=== PATIENT | female | born 1945 | race Asian ===

== ENCOUNTER 2019-05-15 19:29 | Inpatient (IN) | payer OTHER, MEDICAID ==
[~2019-05-15] VITALS: Ht 160 cm; Wt 54.4 kg
[2019-05-15 19:54] VITALS: BP_SYST 155
--- NOTE | 2019-05-15 20:00 | NUR ---
Patient to ER bed 1 to gown for evaluation. Side rails up.
--- NOTE | 2019-05-15 20:10 | NUR ---
ER at bedside examining patient.
--- NOTE | 2019-05-15 20:15 | NUR ---
Pt cam eto the ED for elevated WBC per facility. Reports that pt had WBC of 19.6. 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 Reports g-tube in place due to difficulty swallowing. Pts reports that usually when hemoglobin is low when WBC is elevated. Pt is non-verbal as her baseline. reports that she has been constipated and is only able to defecate a little at a time. No other complaints/injuries noted. Will cont. to monitor.
[2019-05-15 20:53] LABS: BASOPHILS % (AUTO) 0.3 % (0.0-2.0); EOSINOPHILS # (AUTO) 0.3 K/uL (0.0-0.4); EOSINOPHILS % (AUTO) 2.1 % (0.0-4.0); HEMATOCRIT 25.4 % (36-48); HEMOGLOBIN 8.7 g/dL (12.0-16.0); LYMPHOCYTES # (AUTO) 1.7 K/uL (1.0-5.5); LYMPHOCYTES % (AUTO) 14.4 % (20.5-51.5); MEAN CORPUSCULAR HEMOGLOBIN 37 pg (27-31); MEAN CORPUSCULAR HGB CONC 34 % (32-36); MEAN CORPUSCULAR VOLUME 108 fL (79.0-98.0); MONOCYTES # (AUTO) 0.9 K/uL (0.0-1.0); MONOCYTES % (AUTO) 7.8 % (1.7-9.3); NEUTROPHILS # (AUTO) 8.9 K/uL (1.8-7.7); NEUTROPHILS % (AUTO) 75.4 % (40.0-70.0); PLATELET COUNT (AUTO) 412 K/uL (130-430); RED BLOOD CELL COUNT(AUTO) 2.36 MIL/uL (4.2-6.2); RED CELL DISTRIBUTION WIDTH 13.9 % (9.0-15.0); WHITE BLOOD COUNT (AUTO) 11.8 K/uL (4.8-10.8)
[2019-05-15 21:24] LABS: ANION GAP 6 (5-15); CALCIUM 8.9 mg/dL (8.4-11.0); CHLORIDE 98 mmol/L (98-107); CREATININE 0.66 mg/dL (0.55-1.30); GLUCOSE 96 mg/dL (70-99); POTASSIUM 4.2 mmol/L (3.5-5.1); SODIUM SERUM 136 mmol/L (136-145); UREA NITROGEN, BLOOD 33 mg/dL (8-21)
[2019-05-15 21:28] LABS: ALANINE AMINOTRANSFERASE 6 U/L (12-78); ALBUMIN 2.9 g/dL (3.4-4.8); ASPARTATE AMINOTRANSFERASE 12 U/L (10-37); TOTAL BILIRUBIN 0.2 mg/dL (0.0-1.0)
--- NOTE | 2019-05-15 21:35 | NUR ---
Dr. Pete at bedside for rectal exam with myself as rivet hole machine operator. Hemooccult sent to lab.
--- NOTE | 2019-05-15 21:49 | NUR ---
RT at bedside for suctioning
[2019-05-15] MEDS ORDERED: cefTRIAXone 1 GM IVPB PREMIX 50 ML IV ONE (22:00)
[2019-05-15] MEDS ORDERED: VANCOMYCIN HCL 1,000 MG in NS 250 ML IV ONE (22:00)
[2019-05-15] MEDS ORDERED: NACL 0.9% 1,000 ML IV ONE (22:00)
[2019-05-15] MEDS ORDERED: VANCOMYCIN HCL 1000 MG/VIAL IV ONE (22:11)
--- NOTE | 2019-05-15 22:49 | NUR ---
# 16 FR Potts catheter with use of sterile technique. Immediate return of 100 cc yellow, cloudy urine noted. Bedside drainage bag placed below level of bladder. Urine sample collected and sent to lab. Pt tolerated procedure well. Patient arrived with potts in place, changed due to standard of practice prior to admission. Patient unable to toilet self.
[2019-05-15 23:46] LABS: BILIRUBIN,URINE NEGATIVE (NEGATIVE); BLOOD, URINE 1+ (NEGATIVE); CLARITY/URINE SL CLOUDY (CLEAR); COLOR,URINE YELLOW (YELLOW); GLUCOSE,URINE NEGATIVE (NEGATIVE); KETONES,URINE NEGATIVE (NEGATIVE); LEUKOCYTE ESTERASE ,URINE 3+ (NEGATIVE); NITRITE, URINE POSITIVE (NEGATIVE); PH,URINE 7.5 (5.0-8.0); PROTEIN URINE NEGATIVE (NEGATIVE); UROBILINOGEN,URINE 0.2 (0.2-1.0)
[2019-05-15 23:51] LABS: WBC,URINE >100 /HPF (0-3)
[2019-05-15 23:52] LABS: BACTERIA,URINE MANY /HPF (None Seen); URIC ACID CRYSTALS,URINE 0-10 /HPF (None Seen)
[2019-05-16] VITALS (8 sets, daily range): BP systolic 112–162
--- NOTE | 2019-05-16 00:01 | NUR ---
Pts willian went home [phone]
--- NOTE | 2019-05-16 00:22 | NUR ---
Patient will be admitted to care of Dr. Owens. Admitted to Tele unit. Will go to room 135. Belongings list completed. Summary report printed. Report will be given at bedside.
--- NOTE | 2019-05-16 00:30 | NUR ---
Medication reconciliation completed with information provided by facility paperwork. Any prior medication reconciliation on file was reviewed and corrected.
[2019-05-16] MEDS ORDERED: FLEETMO RC (00:39)
[2019-05-16] MEDS ORDERED: CARB1TAB10 GT (00:39)
[2019-05-16] MEDS ORDERED: ACET-2165 GT (00:39)
[2019-05-16] MEDS ORDERED: ALBU2.5V7 INH (00:39)
[2019-05-16] MEDS ORDERED: FERR220S6 GT (00:39)
[2019-05-16] MEDS ORDERED: ACET-73 GT (00:39)
[2019-05-16] MEDS ORDERED: FAMO40TA7 GT (00:39)
[2019-05-16] MEDS ORDERED: ACET325T53 GT (00:39)
[2019-05-16] MEDS ORDERED: MOM GT (00:39)
[2019-05-16] MEDS ORDERED: OSCD500 GT (00:39)
[2019-05-16] MEDS ORDERED: BISA-79 RETROBU093 (00:39)
[2019-05-16] MEDS ORDERED: METO25TA6 GT (00:39)
[2019-05-16] MEDS ORDERED: VITD2000 GT (00:39)
[2019-05-16] MEDS ORDERED: DOCU-144 GT (00:39)
[2019-05-16] MEDS ORDERED: LISI10TA5 GT (00:39)
--- NOTE | 2019-05-16 00:39 | NUR ---
called [facility] for bed, spoke to CN. waiting for bed.
--- NOTE | 2019-05-16 01:02 | NUR ---
Transfer to Tele via ACLS protocol. Licensed nurse present. IV present no signs or symptoms of infiltration.
--- NOTE | 2019-05-16 01:02 | NUR ---
ADMISSION: The patient, YOLANDE GABRIEL, 73 y/o, F admitted by DULCE MARIA GUARDADO MD; with diagnosis of UTI/SEPSIS. Primary RNAayush and Admit RNSerjio at bedside. RT at bedside for vent set up. Pt on Low airl loss mattress.
--- NOTE | 2019-05-16 01:53 | NUR ---
VENT TO TRACH suction small amount of thick white sputum up right position patient awake minimal ventilator alarming procedure tolerated .
--- NOTE | 2019-05-16 04:12 | NUR ---
CONSULTATION PAGED/CALLED Reason for Consultation: VENT MANAGEMENT Person Who was Notified: LEANN Consulting Physician: DR. RIVERA Hotel Services Sales Representative Specialty: Ordering Physician: DR. ESCALONA
--- NOTE | 2019-05-16 04:16 | NUR ---
CONSULTATION PAGED/CALLED Reason for Consultation: SEPSIS/UTI Person Who was Notified: LEANN Consulting Physician: JORJE Conference Services Director Specialty: Ordering Physician: DR. ESCALONA
--- NOTE | 2019-05-16 06:02 | NUR ---
PHOTO PICTURE TAKEN OF BUTTOCKS REDNESS IAD & put in MD medical folder .
--- NOTE | 2019-05-16 08:00 | NUR ---
OPENING NOTES, RECEIVED PT IN BED, PT IS AA01, NON-VERBAL, PT ON TRACH TO VENT, SETTING ARE TV 400, AC 12, PEEP 5, FIO2 30%. PT ABLE TO NOD HEAD FOR YES AND SHAKE FOR NO. TUBE FEEDING ON GOING, NO RESIDUAL NOTED, IF FLUIDS RUNNING ON R. HAND IV ACCESS WITH NO S/S OF INFILTRATION, NO SWELLING. SAFETY PRECAUTION IN PLACE. CALL LIGHT IN REACH. WILL CONTINUE NO MONITOR.
--- NOTE | 2019-05-16 09:05 | NUR ---
Nutrition Update Corona Scale 15 noted. Pt admitted for UTI, sepsis. Diet: Jevity 1.5 at 65 ml/hr, Free Water Flush: 50 via GT BMI: 25.2 kg/m2 RD to follow per nutrition care standards.
[2019-05-16] MEDS ORDERED: ALBUTEROL SULFATE 0.083% 2.5 MG/3 ML VIAL.NEB INH PRN (10:00)
[2019-05-16] MEDS ORDERED: IPRATROPIUM BROM 0.5 MG/2.5 ML VIAL.NEB (ATROVENT) INH PRN (10:00)
--- NOTE | 2019-05-16 10:00 | NUR ---
TURNED AND REPOSITIONED PATIENT WITH RAIL SIGNAL MECHANIC DASIA. SUCTIONED VIA TRACH. WILL CONT TO MONITOR.
[2019-05-16] MEDS: MINERAL OIL 30 ML UDC GT SCH ×2 (10:58→18:12)
[2019-05-16] MEDS: IPRATROPIUM BROM 0.5 MG/2.5 ML VIAL.NEB (ATROVENT) INH SCH ×5 (11:00→23:00)
[2019-05-16] MEDS: ALBUTEROL SULFATE 0.083% 2.5 MG/3 ML VIAL.NEB INH SCH ×5 (11:00→23:00)
--- NOTE | 2019-05-16 12:00 | NUR ---
FLUSHED G-TUBE WITH 50 CC WATER ORDERED.
--- NOTE | 2019-05-16 14:20 | NUR ---
TURNED AND REPOSITIONED PT, FAMILY AT BEDSIDE, PT HAS NO S/S OF SOB, NO DISTRESS.
--- NOTE | 2019-05-16 14:28 | NUR ---
DR RECINOS HERE AND SEEN PT. SPOKE WITH PT'S AT BEDSIDE.
[2019-05-16] MEDS: metroNIDAZOLE 500 mg/NS 100 ML IV SCH (15:20)
--- NOTE | 2019-05-16 18:30 | NUR ---
CLOSING NOTES, PT REMAINED STABLE, NO FEVER, NO CHANGED IN VENT SETTING. PT HAS PORTEX #7. GIVEN ANTIBIOTICS ORDERED. PT ALSO RECEIVED SCHEDULED MINERAL OIL FOR CONSTIPATION. WILL ENDORSE TO NIGHT NURSE.
--- NOTE | 2019-05-16 19:46 | NUR ---
Opening notes Received report. Patient resting in bed, at bedside. No signs of distress noted. Patient tolerating current vent settings O2 sat 99%. IV patent and intact, no signs of infiltration noted. No needs at this time. Call light with the patient. Safety precautions in place.
[2019-05-16] MEDS: FAMOTIDINE 20 MG TABLET GT SCH (20:53)
[2019-05-16] MEDS: METOPROLOL TARTRATE 25 MG TABLET GT SCH (20:53)
--- NOTE | 2019-05-16 21:05 | NUR ---
Medications given via g-tube. 30 ml residual noted. Educated the action and side effects of medications. Patient nodded head. Oral care provided at this time. Patient tolerated well. No other needs at this time. Patient made comfortable. Call light with the patient. Safety precautions in place.
[2019-05-16] MEDS ORDERED: VANCOMYCIN HCL 1,000 MG in NS 250 ML IV SCH (22:00)
[2019-05-16] MEDS: cefTRIAXone 1 GM in D5W 50 ML IV SCH (23:27)
--- NOTE | 2019-05-16 23:50 | NUR ---
Resting Patient resting. Hygiene care provided. Patient repositioned. Patient tolerated well. Patient refuse hygiene care. Educated the importance. Patient nodded no. No other needs. Call light with the patient. Safety precautions in place. Addendum: 05/17/19 at 0413 by Arely Azevedo RN CORRECTION: PATIENT REFUSED ORAL CARE.
[2019-05-17 00:03] VITALS: BP_SYST 132
--- NOTE | 2019-05-17 02:00 | NUR ---
Resting Patient resting in bed, turned on TV per patient request. New bottle of feeding hung. Patient still refusing oral care. No other needs. Call light with the patient. Safety precautions in place.
[2019-05-17] MEDS: IPRATROPIUM BROM 0.5 MG/2.5 ML VIAL.NEB (ATROVENT) INH SCH ×6 (03:00→23:18)
[2019-05-17] MEDS: ALBUTEROL SULFATE 0.083% 2.5 MG/3 ML VIAL.NEB INH SCH ×6 (03:00→23:18)
[2019-05-17] MEDS: metroNIDAZOLE 500 mg/NS 100 ML IV SCH ×2 (03:27→15:05)
[2019-05-17] MEDS: MINERAL OIL 30 ML UDC GT SCH ×3 (03:27→18:42)
--- NOTE | 2019-05-17 04:13 | NUR ---
Sleeping No signs of distress noted. Breathing even and unlabored. Tolerating current vent settings, O2 sat 99%. Call light with the patient. Safety precautions in place.
--- NOTE | 2019-05-17 05:36 | NUR ---
BM Patient had large stool. Hygiene care provided. Patient tolerated well. Patient turned and repositioned. No other needs. Call light with the patient. Safety precautions in place.
--- NOTE | 2019-05-17 06:39 | NUR ---
Closing notes Patient sleeping. No signs of distress noted. Breathing even and unlabored, tolerating current vent settings, O2 Sat 99%. IV patent and intact, no signs of infiltration noted. Feeding infusing at ordered rate. Fitch catheter in place, draining yellow urine. All need met throughout the shift. Call light with the patient. Safety precautions in place. Will endorse care to day shift RN.
--- NOTE | 2019-05-17 07:15 | NUR ---
INITIAL NOTE BEDSIDE SBAR REPORT RECEIVED BY VETERINARY X RAY OPERATOR RN. PT RECEIVING BREATHING TREATMENT, TOLERATING WELL. PT IS NONVERBAL. CALL LIGHT WITHIN REACH, BED IN LOW AND LOCKED POSITION WITH BED ALARM ON.
[2019-05-17 07:31] LABS: EOSINOPHILS # (AUTO) 0.1 K/uL (0.0-0.4); MONOCYTES # (AUTO) 0.6 K/uL (0.0-1.0); NEUTROPHILS # (AUTO) 5.4 K/uL (1.8-7.7); RED CELL DISTRIBUTION WIDTH 14.1 % (9.0-15.0)
[2019-05-17 07:39] LABS: ALANINE AMINOTRANSFERASE 23 U/L (12-78); ALBUMIN 2.6 g/dL (3.4-4.8); ANION GAP 3 (5-15); ASPARTATE AMINOTRANSFERASE 9 U/L (10-37); BASOPHILS % (AUTO) 0.2 % (0.0-2.0); CALCIUM 8.3 mg/dL (8.4-11.0); CHLORIDE 104 mmol/L (98-107); CREATININE 0.54 mg/dL (0.55-1.30); EOSINOPHILS % (AUTO) 1.1 % (0.0-4.0); GLUCOSE 147 mg/dL (70-99); LYMPHOCYTES # (AUTO) 1.8 K/uL (1.0-5.5); LYMPHOCYTES % (AUTO) 22.9 % (20.5-51.5); MEAN CORPUSCULAR HEMOGLOBIN 38 pg (27-31); MEAN CORPUSCULAR HGB CONC 35 % (32-36); MEAN CORPUSCULAR VOLUME 110 fL (79.0-98.0); MONOCYTES % (AUTO) 7.3 % (1.7-9.3); NEUTROPHILS % (AUTO) 68.5 % (40.0-70.0); PLATELET COUNT (AUTO) 369 K/uL (130-430); POTASSIUM 3.9 mmol/L (3.5-5.1); RED BLOOD CELL COUNT(AUTO) 2.09 MIL/uL (4.2-6.2); SODIUM SERUM 136 mmol/L (136-145); TOTAL BILIRUBIN 0.2 mg/dL (0.0-1.0); UREA NITROGEN, BLOOD 23 mg/dL (8-21); WHITE BLOOD COUNT (AUTO) 7.9 K/uL (4.8-10.8)
[2019-05-17 07:44] LABS: HEMATOCRIT 23.1 % (36-48)
[2019-05-17 08:00] VITALS: BP_SYST 160
[2019-05-17] MEDS: FAMOTIDINE 20 MG TABLET GT SCH ×2 (08:41→21:26)
[2019-05-17] MEDS: LISINOPRIL 10 MG TABLET (PRINIVIL) GT SCH (08:42)
[2019-05-17] MEDS: METOPROLOL TARTRATE 25 MG TABLET GT SCH ×2 (08:42→21:26)
--- NOTE | 2019-05-17 09:15 | NUR ---
RN ROUNDS PT AWAKE, NON VERBAL. NO ACUTE DISTRESS NOTED. AT BEDSIDE.
--- NOTE | 2019-05-17 09:45 | NUR ---
DR. DEBBY ANDERSON AT BEDSIDE EXAMINING PATIENT.
--- NOTE | 2019-05-17 11:20 | NUR ---
RN ROUNDS ORAL CARE DONE, PT TOLERATED WELL. PT INCONTINENT OF BOWEL, PT CHANGED.
[2019-05-17 12:26] VITALS: BP_SYST 155
--- NOTE | 2019-05-17 13:20 | NUR ---
RN ROUNDS PT RESTING, NO ACUTE DISTRESS NOTED, BREATHING EVEN AND UNLABORED.
--- NOTE | 2019-05-17 13:33 | NUR ---
Dietitian Recommendations * Recommend Jevity 1.5 at 55 ml/hr, Free Water Flush: 50 ml Q6h via GT Provides: 1980 kcal/day, 84 gm protein/day, and 1203 ml free water/day Meets: 103% of lower end of estimated caloric needs and 103% of lower end of estimated protein needs ANNE, RD Please refer to Nutrition Assessment for details. Addendum: 05/17/19 at [address] Amended: Links added. Addendum: 05/17/19 at [address] RD notified pt's primary RN of above recommendations/TF order. RN stated she would adjust TF pump.
--- NOTE | 2019-05-17 15:20 | NUR ---
RN ROUNDS PATIENT RESTING, NO ACUTE DISTRESS NOTED, BREATHING EVEN AND UNLABORED. FAMILY AT BEDSIDE.
[2019-05-17 16:30] VITALS: BP_SYST 148
--- NOTE | 2019-05-17 17:20 | NUR ---
RN ROUNDS PT RESTING IN BED, NO ACUTE DISTRESS NOTED, BREATHING EVEN AND UNLABORED. FAMILY AT BEDSIDE.
--- NOTE | 2019-05-17 18:06 | NUR ---
RN ROUNDS PATIENT PERSPIRING. TEMP STABLE 98.3. OFFERED ICE PACK AND REMOVED BLANKET. WILL CONTINUE TO MONITOR. PT DENIES ANY PAIN OR DISCOMFORT AT THIS TIME.
--- NOTE | 2019-05-17 19:20 | NUR ---
CHANGE OF SHIFT; pt. awake, alert, non verbal with tracheostomy on a vent. at bedside. on high rocha's position. 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 will assess later. in no distress. bed in low position.
--- NOTE | 2019-05-17 19:42 | NUR ---
CLOSING NOTE BEDSIDE SBAR REPORT GIVEN TO CAR CUSTOMIZER RN. PATIENT SLEEPING, BREATHING EVEN AND UNLABORED, NO ACUTE DISTRESS NOTED. IVF INFUSING WELL. FEEDING TUBE INFUSING WELL. CALL LIGHT WITHIN REACH, BED IN LOW AND LOCKED POSITION WITH BED ALARM ON. ISOLATION PRECAUTIONS IN PLACE.
[2019-05-17 20:30] VITALS: BP_SYST 151
--- NOTE | 2019-05-17 20:30 | NUR ---
NOTES: pt. awake, alert,nods head or shakes head when asked questioned, understand Tagalog and Maltese, with trach #7 on the vent , settings AC rate 12 TV 400 PEEP 5 and FIO2 @ 32%. suctioned orally and via trach with thick mucus secretions. O2 sat 99%. pt. contracted on both upper extremities milka. left hand. 2 IV sites on both hand, both lower extremities milka. thigh area pretty tight and swollen. G tube intact with Jevity feeding @ 55 cc/hr., checked residual @ 10 cc. site appears clean. potts catheter to OSD with yellow urine output. call light at bedside, bed alarm on. pt. close to nurses station, call light at bedside.sports broadcaster shows sinus rhythm.
--- NOTE | 2019-05-17 21:00 | NUR ---
NOTES: pt. repositioned, delvin care done, feels warm, cooling measures with ice bag under her armpit and nape of her neck.HOB keep elevated, both heels off load with pillow. on contact isolation for MRSA of nares.
--- NOTE | 2019-05-17 21:30 | NUR ---
NOTES: medications given per G tube, flushed with water. pt. remains awake.
[2019-05-17] MEDS: cefTRIAXone 1 GM in D5W 50 ML IV SCH (22:44)
--- NOTE | 2019-05-17 23:00 | NUR ---
NOTES: IV site infiltrated, restarted another IV on right hand # 24 , resume IV antibiotic due. noted rt. hand/arm shaking with history of Parkinsons. condition guarded.
--- NOTE | 2019-05-18 00:19 | NUR ---
NOTES: pt. sleeping but easily awakens. repositioned. observed contact isolation for MRSA nares.
[2019-05-18 01:15] VITALS: BP_SYST 156
--- NOTE | 2019-05-18 02:13 | NUR ---
NOTES: pt. calm and sleeping. condition observed. repositioned.
[2019-05-18] MEDS: metroNIDAZOLE 500 mg/NS 100 ML IV SCH ×2 (02:48→14:19)
[2019-05-18] MEDS: MINERAL OIL 30 ML UDC GT SCH ×2 (02:55→10:45)
[2019-05-18] MEDS: IPRATROPIUM BROM 0.5 MG/2.5 ML VIAL.NEB (ATROVENT) INH SCH ×4 (03:00→19:25)
[2019-05-18] MEDS: ALBUTEROL SULFATE 0.083% 2.5 MG/3 ML VIAL.NEB INH SCH ×4 (03:00→19:25)
--- NOTE | 2019-05-18 04:22 | NUR ---
NOTES: pt. sleeping. trach to vent with spontaneous breathing. condition unchanged.
--- NOTE | 2019-05-18 05:30 | NUR ---
NOTES: complete am care/delvin care done. incontinent of loose stool. kept dry and applied z deo on coccyx area. suction, oral care done. same settings on the vent. IV lock on both hands intact.HOB elevated. g tube continuous.
--- NOTE | 2019-05-18 06:45 | NUR ---
CLOSING NOTES; pt. went back to sleep. trach intact to vent @ same settings. both IV lock on both hands. G tube continuous with Jevity @ 55 cc.hr. dressing on site changed. potts cath to osd intact. on contact isolation for MRSA nares. for further care, observation and assistance. be din low position, bed alarm on. no acute distress.
--- NOTE | 2019-05-18 07:30 | NUR ---
INITIAL NOTE BEDSIDE SBAR REPORT RECEIVED BY FAMILY PRACTICE PHYSICIAN RN. PT RESTING, BREATHING EVEN AND UNLABORED, NO ACUTE DISTRESS NOTED. PT ON VENT. ISOLATION PRECAUTIONS IN PLACE, CALL LIGHT WITHIN REACH, BED IN LOW AND LOCKED POSITION WITH BED ALARM ON.
[2019-05-18 08:00] VITALS: BP_SYST 150
[2019-05-18] MEDS: FAMOTIDINE 20 MG TABLET GT SCH ×2 (08:54→20:07)
[2019-05-18] MEDS: METOPROLOL TARTRATE 25 MG TABLET GT SCH ×2 (08:55→20:10)
[2019-05-18] MEDS: LISINOPRIL 10 MG TABLET (PRINIVIL) GT SCH (08:55)
--- NOTE | 2019-05-18 09:30 | NUR ---
RN ROUNDS PT RESTING, NO ACUTE DISTRESS NOTED, BREATHING EVEN AND UNLABORED. MORNING MEDICATIONS ADMINISTERED. G-TUBE PATENT.
--- NOTE | 2019-05-18 10:15 | NUR ---
DR. CHARLES ANDERSON AT BEDSIDE EXAMINING PT, NEW ORDERS GIVEN, VERIFIED WITH READ BACK.
[2019-05-18 11:19] LABS: BASOPHILS % (AUTO) 0.6 % (0.0-2.0); EOSINOPHILS # (AUTO) 0.1 K/uL (0.0-0.4); EOSINOPHILS % (AUTO) 2.3 % (0.0-4.0); HEMATOCRIT 24.7 % (36-48); HEMOGLOBIN 8.5 g/dL (12.0-16.0); LYMPHOCYTES # (AUTO) 1.5 K/uL (1.0-5.5); LYMPHOCYTES % (AUTO) 27.9 % (20.5-51.5); MEAN CORPUSCULAR HEMOGLOBIN 37 pg (27-31); MEAN CORPUSCULAR HGB CONC 35 % (32-36); MEAN CORPUSCULAR VOLUME 108 fL (79.0-98.0); MONOCYTES # (AUTO) 0.6 K/uL (0.0-1.0); MONOCYTES % (AUTO) 10.8 % (1.7-9.3); NEUTROPHILS % (AUTO) 58.4 % (40.0-70.0); PLATELET COUNT (AUTO) 367 K/uL (130-430); RED BLOOD CELL COUNT(AUTO) 2.29 MIL/uL (4.2-6.2); RED CELL DISTRIBUTION WIDTH 13.9 % (9.0-15.0); WHITE BLOOD COUNT (AUTO) 5.2 K/uL (4.8-10.8)
--- NOTE | 2019-05-18 11:30 | NUR ---
RN ROUNDS PT RESTING IN BED, NO ACUTE DISTRESS NOTED, BREATHING EVEN AND UNLABORED.
[2019-05-18 11:42] LABS: TOTAL IRON BIND. CAPACITY 192 ug/dL (250-450)
[2019-05-18 11:53] VITALS: BP_SYST 154
--- NOTE | 2019-05-18 13:30 | NUR ---
RN ROUNDS PT INCONTINENT OF BOWEL, CHANGED PATIENT, TOLERATED WELL. REPOSITIONED FOR COMFORT.
--- NOTE | 2019-05-18 15:15 | NUR ---
RN ROUNDS ANTIBIOTICS ADMINISTERED VIA IV, PATIENT COMPLAINING OF PAIN ON LEFT IV SITE. IV SITE INFILTRATED. IV CATHETER REMOVED, CATHETER INTACT. CONTINUED IV ANTIBIOTICS ON RIGHT HAND IV SITE. PATIENT DENIES ANY PAIN OR DISCOMFORT.
[2019-05-18 16:49] VITALS: BP_SYST 152
--- NOTE | 2019-05-18 17:15 | NUR ---
RN ROUNDS PT RESTING IN BED, NO ACUTE DISTRESS NOTED, BREATHING EVEN AND UNLABORED.
--- NOTE | 2019-05-18 19:35 | NUR ---
CLOSING NOTE BEDSIDE SBAR REPORT GIVEN TO ACTUARIAL ASSOCIATE RN. PATIENT RESTING IN BED, NO ACUTE DISTRESS NOTED, BREATHING EVEN AND UNLABORED. ISOLATION PRECAUTIONS IN PLACE. CALL LIGHT WITHIN REACH, BED IN LOW AND LOCKED POSITION WITH BED ALARM ON. PT CARE ENDORSED TO ACTUARIAL ASSOCIATE RN.
[2019-05-18 19:45] VITALS: BP_SYST 163
--- NOTE | 2019-05-18 19:45 | NUR ---
INITIAL NOTES PATIENT IS LAYING IN BED, STABLE, FAMILY AT BEDSIDE. NO SIGNS OR SYMPTOMS OF RESPIRATORY DISTRESS. PLAN OF CARE DISCUSSED WITH FAMILY AND PATIENT. PATIENT SUCCESSFULLY DEMONSTRATES USAGE OF CALL LIGHT. CALL LIGHT IS WITHIN REACH. BED IS LOCKED, ALARMED, AND AT LOWEST POSITION. PATIENT SHAKES HER HEAD (NO PAIN). CONTACT, RESPIRATORY, FALL, AND SAFETY PRECAUTIONS WILL BE PLACED THROUGHOUT THE SHIFT.
[2019-05-18] MEDS: MUPIROCIN 1 GM OIN.PF.APP NS SCH (20:05)
--- NOTE | 2019-05-18 21:45 | NUR ---
RN ROUNDING PATIENT IS SLEEPING IN BED AND STABLE. NO SIGNS OR SYMPTOMS OF RESPIRATORY DISTRESS. CALL LIGHT IS WITHIN REACH. BED IS LOCKED, ALARMED, AND AT THE LOWEST POSITION. WILL CONTINUE TO MONITOR.
[2019-05-18] MEDS: cefTRIAXone 1 GM in D5W 50 ML IV SCH (23:16)
--- NOTE | 2019-05-18 23:45 | NUR ---
RN ROUNDING PATIENT IS LAYING IN BED IN BED AND STABLE. HYGIENE CARE WAS GIVEN AT THIS TIME. LINENS WERE CHANGED. PATIENT TOLERATED CARE. PATIENT WAS REPOSITION FOR COMFORT. NO SIGNS OR SYMPTOMS OF RESPIRATORY DISTRESS. CALL LIGHT IS WITHIN REACH. BED IS LOCKED, ALARMED, AND AT THE LOWEST POSITION. WILL CONTINUE TO MONITOR.
[2019-05-19] VITALS (9 sets, daily range): BP systolic 115–158
[2019-05-19] MEDS: metroNIDAZOLE 500 mg/NS 100 ML IV SCH ×2 (02:10→15:35)
[2019-05-19] MEDS: MINERAL OIL 30 ML UDC GT SCH ×2 (02:16→10:45)
--- NOTE | 2019-05-19 05:45 | NUR ---
RN ROUNDING PATIENT IS LAYING IN BED AND STABLE. PATIENT HAD A BOWEL MOVEMENT AT THIS TIME. HYGIENE CARE PROVIDED AT THIS TIME. LINENS WERE CHANGED. PATIENT TOLERATED WELL. PATIENT REPOSITION FOR COMFORT. NO SIGNS OR SYMPTOMS OF RESPIRATORY DISTRESS. CALL LIGHT IS WITHIN REACH. BED IS LOCKED, ALARMED, AND AT THE LOWEST POSITION. WILL CONTINUE TO MONITOR.
--- NOTE | 2019-05-19 06:10 | NUR ---
CLOSING NOTES PATIENT IS LAYING IN BED AND WAS STABLE THROUGHOUT THE SHIFT. NO SIGNS OR SYMPTOMS OF RESPIRATORY DISTRESS. CALL LIGHT IS WITHIN REACH. PATIENT STATED NO PAIN THROUGHOUT THE SHIFT. BED IS LOCKED, ALARMED, AND AT THE LOWEST POSITION. SAFETY, CONTACT, RESPIRATION, ASPIRATION, AND FALL PRECAUTIONS HAS BEEN PLACED THROUGHOUT THE SHIFT. WILL CONTINUE TO MONITOR UNTIL REPORT IS GIVEN TO AM NURSE AT THE BEDSIDE.
[2019-05-19 07:51] LABS: BASOPHILS % (AUTO) 0.7 % (0.0-2.0); EOSINOPHILS # (AUTO) 0.1 K/uL (0.0-0.4); HEMATOCRIT 25.1 % (36-48); HEMOGLOBIN 8.6 g/dL (12.0-16.0); LYMPHOCYTES # (AUTO) 1.7 K/uL (1.0-5.5); LYMPHOCYTES % (AUTO) 31.8 % (20.5-51.5); MEAN CORPUSCULAR HEMOGLOBIN 37 pg (27-31); MEAN CORPUSCULAR HGB CONC 34 % (32-36); MEAN CORPUSCULAR VOLUME 110 fL (79.0-98.0); MONOCYTES # (AUTO) 0.5 K/uL (0.0-1.0); MONOCYTES % (AUTO) 9.4 % (1.7-9.3); NEUTROPHILS % (AUTO) 56.1 % (40.0-70.0); PLATELET COUNT (AUTO) 373 K/uL (130-430); RED BLOOD CELL COUNT(AUTO) 2.29 MIL/uL (4.2-6.2); RED CELL DISTRIBUTION WIDTH 13.6 % (9.0-15.0); WHITE BLOOD COUNT (AUTO) 5.3 K/uL (4.8-10.8)
[2019-05-19 08:23] LABS: ALANINE AMINOTRANSFERASE 24 U/L (12-78); ALBUMIN 2.6 g/dL (3.4-4.8); ANION GAP 2 (5-15); ASPARTATE AMINOTRANSFERASE 18 U/L (10-37); CALCIUM 8.6 mg/dL (8.4-11.0); CHLORIDE 104 mmol/L (98-107); CREATININE 0.65 mg/dL (0.55-1.30); GLUCOSE 134 mg/dL (70-99); POTASSIUM 4.3 mmol/L (3.5-5.1); SODIUM SERUM 136 mmol/L (136-145); TOTAL BILIRUBIN 0.2 mg/dL (0.0-1.0); UREA NITROGEN, BLOOD 23 mg/dL (8-21)
[2019-05-19 10:06] LABS: FOLATE (FOLIC ACID) >20.0 ng/mL (>3.0)
[2019-05-19] MEDS: LISINOPRIL 10 MG TABLET (PRINIVIL) GT SCH (10:06)
[2019-05-19] MEDS: FAMOTIDINE 20 MG TABLET GT SCH (10:07)
[2019-05-19] MEDS: MUPIROCIN 1 GM OIN.PF.APP NS SCH (10:08)
[2019-05-19] MEDS: METOPROLOL TARTRATE 25 MG TABLET GT SCH (10:08)
[2019-05-19] MEDS: ALBUTEROL SULFATE 0.083% 2.5 MG/3 ML VIAL.NEB INH SCH ×2 (11:31→15:25)
[2019-05-19] MEDS: IPRATROPIUM BROM 0.5 MG/2.5 ML VIAL.NEB (ATROVENT) INH SCH ×2 (11:32→15:25)
--- NOTE | 2019-05-19 20:30 | NUR ---
D/C Patient MEDIC-1 EMT AND RT K[place] ARE TRANSFERRING THE PATIENT AT THIS TIME VIA [facility]. Patient given medication reconciliation form and D/C instructions. Exit Care provided. Patient'S AT BEDSIDE verbalized understanding. MD discussed with patient the results and treatment provided. PATIENT IS BEDREST, BEING TRANSPORTED VIA GURNEY FOR DISCHARGE TO [facility]. RT WILL BE WITH PATIENT FOR TRANSPORT. Patient in stable condition, ID band removed. IV'S ARE STERILE LOCKED PER [facility] REQUEST. Rx of given. Patient educated on pain management. All belongings sent with patient.
[2019-05-21 20:49] LABS: HAPTOGLOBIN 290 mg/dL (34-200)
== END 2019-05-19 20:30 | DRG 208 ==
LOC: SED 19:29 → STU 05-16 00:18
PROVIDERS: ADMIT Internal Medicine Hospice and Palliative Medicine; ATTEND Internal Medicine Hospice and Palliative Medicine
PROC: 5A1945Z Respiratory Ventilation, 24-96 Consecutive Hours (ICD-10-PCS; 2019-05-16)
PROC: 30233N1 Transfusion of Nonautologous Red Blood Cells into Peripheral Vein, Percutaneous Approach (ICD-10-PCS; principal; 2019-05-19)
DX: J69.0 Pneumonitis due to inhalation of food and vomit (principal); J96.20 Acute and chronic respiratory failure, unspecified whether with hypoxia or hypercapnia; N39.0 Urinary tract infection, site not specified; G11.9 Hereditary ataxia, unspecified; B96.89 Other specified bacterial agents as the cause of diseases classified elsewhere; D64.9 Anemia, unspecified; F02.80 Dementia in other diseases classified elsewhere, unspecified severity, without behavioral disturbance, psychotic disturbance, mood disturbance, and anxiety; G20 Parkinson's disease; K21.9 Gastro-esophageal reflux disease without esophagitis; I10 Essential (primary) hypertension; R13.10 Dysphagia, unspecified; Z86.73 Personal history of transient ischemic attack (TIA), and cerebral infarction without residual deficits; Z88.6 Allergy status to analgesic agent; Z93.0 Tracheostomy status; Z93.1 Gastrostomy status; Z79.899 Other long term (current) drug therapy
CPT/HCPCS: 36415; 36600; 71045; 80053; 81000-TC; 82272; 82607; 82746; 82803-TC; 83010; 83540-TC; 83550-TC; 83605; 83615-TC; 83880; 84484; 85025; 86886; 86900; 86901; 86920; 87040-TC; 87081; 87086; 87186-TC; 94002; 94003; 94640; 94760; 96365; 96366; 96367; 99285; G0378; J0696; J3370; J3490; J7030; J7040; J7050; J7060; J7613; P9021